=== PATIENT | male | born 1960 | race Caucasian/White ===

== ENCOUNTER 2022-04-14 07:13 | Emergency (ER) | payer OTHER ==
[2022-04-14] MEDS ORDERED: Morphine 4 MG/ML VIAL ONE (08:26)
[2022-04-14] MEDS ORDERED: Boostrix 0.5 ML (Tdap) VIAL (>/=7 yrs of age) ONE (08:39)
== END 2022-04-14 08:48 | disposition short-term general hospital (02) ==
LOC: MADERS 07:13
DX: N48.89 Other specified disorders of penis (principal); I10 Essential (primary) hypertension; I25.2 Old myocardial infarction; E78.00 Pure hypercholesterolemia, unspecified; F17.210 Nicotine dependence, cigarettes, uncomplicated; Z23 Encounter for immunization; Z79.82 Long term (current) use of aspirin; Z79.899 Other long term (current) drug therapy
CPT/HCPCS: 90471; 90715; 96374; J2270